=== PATIENT | male | born 1985 | race Caucasian/White ===

== ENCOUNTER 2017-05-07 18:22 | Emergency (ER) | payer SELFPAY ==
[~2017-05-07] VITALS: Ht 193 cm; Wt 115.2 kg
[2017-05-07] MEDS ORDERED: LORA1TAB PO (19:06)
--- NOTE | 2017-05-07 19:50 | NUR ---
CALLED PATIENT. NOT IN WAITING ROOM OR OUTSIDE OF ER.
--- NOTE | 2017-05-07 20:15 | NUR ---
CALLED PATIENT, NOT IN WAITING ROOM.
--- NOTE | 2017-05-07 20:30 | NUR ---
PATIENT NOT IN WAITING ROOM.
== END 2017-05-07 20:30 | disposition left against medical advice (07) ==
LOC: ER 18:25
DX: Z53.21 Procedure and treatment not carried out due to patient leaving prior to being seen by health care provider (principal)
CPT/HCPCS: A4663